=== PATIENT | male | born 1990 | race Asian ===

== ENCOUNTER 2017-05-14 22:18 | Inpatient (IN) | payer SELFPAY ==
[~2017-05-14] VITALS: Ht 152.4 cm; Wt 54.0 kg
[2017-05-14 22:43] LABS: BASOPHILS % (AUTO) 0.4 % (0.0-2.0); EOSINOPHILS % (AUTO) 0.4 % (1.0-6.0); HEMATOCRIT 44.3 % (41-53); HEMOGLOBIN 14.9 g/dL (13.5-17.5); LYMPHOCYTES # (AUTO) 0.9 K/uL (1.0-4.8); LYMPHOCYTES % (AUTO) 6.8 % (22.0-44.0); MEAN CORPUSCULAR HEMOGLOBIN 29.4 pg (26.0-34.0); MEAN CORPUSCULAR HGB CONC 33.5 G/dL (31.0-37.0); MEAN CORPUSCULAR VOLUME 88 fL (80-100); MONOCYTES # (AUTO) 0.6 K/uL (0.1-1.0); MONOCYTES % (AUTO) 4.8 % (2.0-9.0); NEUTROPHILS # (AUTO) 11.7 K/uL (1.8-7.7); NEUTROPHILS % (AUTO) 87.6 % (40.0-70.0); PLATELET COUNT (AUTO) 381 K/uL (150-450); RED BLOOD CELL COUNT(AUTO) 5.05 MIL/uL (4.50-5.90); RED CELL DISTRIBUTION WIDTH 13.9 % (11.5-14.5); WHITE BLOOD COUNT (AUTO) 13.3 K/uL (4.5-11.0)
[2017-05-14 23:00] LABS: RBC MORPHOLOGY COMMENT ABNORMAL RBC MORPH
[2017-05-14 23:01] LABS: ANION GAP 8 mmol/L (8-16); CALCIUM, TOTAL 9.5 mg/dL (8.8-10.5); CARBON DIOXIDE 29 mmol/L (22-29); CHLORIDE 103 mmol/L (98-107); GLOMERULAR FILTR. RATE CALC > 60 mL/min (>60); POTASSIUM 4.2 mmol/L (3.5-5.1); SODIUM SERUM 140 mmol/L (136-145); UREA NITROGEN, BLOOD 10 mg/dL (7-18)
[2017-05-14 23:07] LABS: ALANINE AMINOTRANSFERASE 30 U/L (12-78); ALBUMIN 4.2 g/dL (3.4-5.0); ASPARTATE AMINOTRANSFERASE 20 U/L (15-37); BILIRUBIN,TOTAL 0.3 mg/dL (0.1-1.0); TOTAL PROTEIN, SERUM 7.6 g/dL (6.4-8.2)
[2017-05-15] MEDS ORDERED: DiphenhydrAMINE HCL 25 MG CAPSULE PO ONE (02:15)
[2017-05-15] MEDS ORDERED: LORazepam 2 MG TABLET PO ONE (02:15)
[2017-05-15] MEDS ORDERED: HALOPERIDOL 5 MG TABLET PO ONE (02:15)
[2017-05-15] MEDS ORDERED: SERT100T12 PO (06:46)
[2017-05-15] MEDS ORDERED: ZOLPIDEM TARTRATE 10 MG TABLET PO PRN (11:00)
[2017-05-15 15:09] VITALS: BP 105/59
[2017-05-15 17:00] VITALS: BP 113/76
[2017-05-16 06:03] VITALS: BP 118/82
[2017-05-16 06:53] LABS: CHOL/HDL RATIO 3.2 (4.2-7.3)
[2017-05-16] MEDS: LORazepam 2 MG TABLET PO PRN ×2 (07:55→18:01)
[2017-05-16] MEDS: HALOPERIDOL 5 MG TABLET PO PRN ×2 (07:55→18:01)
[2017-05-16 08:42] VITALS: BP 116/75
[2017-05-16 08:52] VITALS: BP 116/75
[2017-05-16] MEDS ORDERED: ACETAMINOPHEN 325 MG TABLET PO PRN (09:15)
[2017-05-16] MEDS ORDERED: IBUPROFEN 600 MG TABLET PO PRN (09:15)
[2017-05-16] MEDS ORDERED: LOPERAMIDE HCL 2 MG CAPSULE PO PRN (09:45)
[2017-05-16] MEDS ORDERED: PETROLATUM,WHITE 71 GM JELLY TP PRN (09:45)
[2017-05-16] MEDS ORDERED: BENZOCAINE/MENTHOL LOZENGE [8 LOZENGES/PACKET] MM PRN (09:45)
[2017-05-16] MEDS ORDERED: CloNIDine HCL 0.1 MG TABLET PO PRN (09:45)
[2017-05-16] MEDS ORDERED: MAGNESIUM HYDROXIDE SUSPENSION 30 ML UDCUP PO PRN (09:45)
[2017-05-16] MEDS ORDERED: ALBUTEROL SULFATE HFA 90 MCG/PUFF 8 GM INHALER IH PRN (09:45)
[2017-05-16] MEDS ORDERED: MAG HYDROX/AL HYDROX/SIMETH ES 30 ML SUSPENSION UDCUP PO PRN (09:45)
[2017-05-16] MEDS ORDERED: BACITRACIN 28.4 GM OINTMENT TP PRN (09:45)
[2017-05-16] MEDS ORDERED: ONDANSETRON HCL 4 MG TABLET PO PRN (09:45)
[2017-05-16 16:06] VITALS: BP 115/76
[2017-05-17] MEDS: LORazepam 2 MG TABLET PO PRN ×2 (08:41→17:55)
[2017-05-17] MEDS: HALOPERIDOL 5 MG TABLET PO PRN (08:41)
[2017-05-18 08:00] VITALS: BP 133/83
[2017-05-18 12:30] VITALS: BP 128/76
[2017-05-18] MEDS: LORazepam 2 MG TABLET PO PRN ×2 (12:35→17:47)
[2017-05-18 17:05] VITALS: BP 119/81
== END 2017-05-18 18:45 | disposition home or self-care (01) | DRG 885 ==
LOC: EMS 22:21 → 3EC 05-15 13:32
PROVIDERS: ADMIT Psychiatry & Neurology Psychiatry; ATTEND Psychiatry & Neurology Psychiatry
DX: F29 Unspecified psychosis not due to a substance or known physiological condition (principal); F25.9 Schizoaffective disorder, unspecified; F91.3 Oppositional defiant disorder; G80.9 Cerebral palsy, unspecified; F22 Delusional disorders; F41.9 Anxiety disorder, unspecified; F32.9 Major depressive disorder, single episode, unspecified; D72.829 Elevated white blood cell count, unspecified; K59.00 Constipation, unspecified; G47.00 Insomnia, unspecified; R51 Headache; Z78.1 Physical restraint status
CPT/HCPCS: 99285; G0480